=== PATIENT | male | born 1970 | race Caucasian/White ===

== ENCOUNTER 2016-12-03 09:13 | Emergency (ER) | payer SELFPAY ==
--- NOTE | 2016-12-04 12:15 | ER ---
ADMIT: 12/03/2016 RM/LOC: ER [facility] MR#: [id number] [facility] [address] [place], [place] [id number] KRIS CALZADA [address] [id number] Emergency Room Report SEX: M AGE: 46 : 1970 DATE: 12/03/2016 HISTORY OF PRESENT ILLNESS: A 46-year-old, comes back to the Emergency Department with continued chest wall pain. See T-sheet for history and physical. X-ray is unremarkable of the chest. Toradol alleviates the pain. DIAGNOSIS: Chest wall pain. Instructed to follow up with his primary doctor this week. Willie Mcmillan MD/ cleopatra JOB #: [id number] CC: Willie Mcmillan MD, Attending Physician Pablo Hi MD, Family Physician
== END 2016-12-03 10:45 | disposition home or self-care (01) ==
LOC: ER 09:13
DX: R07.89 Other chest pain (principal); Z79.899 Other long term (current) drug therapy